=== PATIENT | female | born 1985 | race Caucasian/White ===

== ENCOUNTER 2020-10-26 16:40 | Emergency (ER) | payer SELFPAY ==
[2020-10-26 16:53] VITALS: BP 165/120; PULSE 88; RESP 16; TEMP 36.6; O2SAT 98; BMI 23.5
--- NOTE | 2020-10-26 17:04 | XRR_ITS ---
PROCEDURE INFORMATION: Exam: XR Chest Exam date and time: 10/26/2020 5:06 PM Age: 34 years old Clinical indication: Patient HX: Dyspnea/cough; PT shielded TECHNIQUE: Imaging protocol: XR of the chest. Views: 1 view. COMPARISON: No relevant prior studies available. FINDINGS: Lungs: Visualized portions of the lungs are clear. Pleural spaces: Unremarkable. No pleural effusion. No pneumothorax. Heart/Mediastinum: Heart is within normal limits of size. Bones/joints: There is mild scoliosis of the thoracic spine. XR/XR chest 1V portable 00110 IMPRESSION: No acute infiltrate.
--- NOTE | 2020-10-26 17:04 | ECG_ITS ---
[facility] Test Date: 2020-10-26 Pat Name: Funmilayo Jung Department: Room: Gender: Female [employer]: : 1985 Requested By: Nicholas Hidalgo Order Number: [id number] Sruthi MD: Yadiel Antoine M.D. Measurements Intervals [place] Rate: 67 P: 71 WV: 138 QRS: 61 QRSD: 85 T: 46 QT: 404 QTc: 429 Interpretive Statements SINUS RHYTHM No previous ECG available for comparison Electronically Signed On 10-26-2020 19:48:14 CDT by Yadiel Antoine M.D. [id number]
--- NOTE | 2020-10-26 17:40 | W.ED.DIZZY ---
Documented by User: Nicholas Parker DO 10/27/20 07:22 HPI - Dizziness General: Chief Complaint: Dizziness Stated Complaint: dizziness x 4days Time Seen by Provider: 10/26/20 17:03 History of Present Illness: HPI Narrative: 34-year-old female comes in complaining lightheadedness dizziness. She seen by her PCP via televisit today blood pressure elevated she is advised to come the emergency room. She is currently on antihypertensives no recent dose changes she has not missed any medication she does smoke. MD elicited complaint: dizziness and lightheadedness Onset (ago): day(s) Timing: gradual onset Severity: mild Description: lightheadedness and off-balance History of similar symptoms: Yes Exacerbating factors: movement/ambulation and change in body position Relieving factors: remaining still Associated symptoms: Denies change in hearing, chest pain, chills, cough, diaphoresis, ear discharge, ear pressure, fevers/chills, headache(s), malaise, nausea, nasal congestion, palpitations, rash, short of breath, syncope, tinnitus, vomiting or weakness Associated neuro symptoms: Deny confusion, difficulty speaking, dysphagia, diplopia, extremity weakness, facial numbness, facial weakness, gait changes, numbness in extremities or visual changes Review of Systems Const: Denies: chills, malaise or diaphoresis ENMT: Denies: ear discharge, change in hearing, tinnitus or nasal congestion Card: Denies: chest pain, palpitations or syncope Resp: Denies: dyspnea, productive cough or non-productive cough GI: Denies: nausea, vomiting or dysphagia : Denies: flank pain, difficulty voiding, dysuria, urinary frequency or urinary urgency Skin/Breast: Denies: rash or pruritus Neuro: Denies: headache(s), numbness in extremities or confusion [facility] Female Reproductive History: Date of last menstrual period: 10/05/20 Physical Exam Const: COMMON NORMALS: no acute distress GENERAL APPEARANCE: cooperative and comfortable ORIENTATION/CONSCIOUSNESS: Yes awake, Yes oriented to person, Yes oriented to place and Yes oriented to time HENMT: COMMON NORMALS: normocephalic, atraumatic, hearing grossly normal bilaterally, external ears normal, EAC's normal, TM's normal bilaterally, Normal nasal mucous membranes and turbinates present, moist oral mucous membranes and oropharynx normal HEAD & SCALP: normocephalic and atraumatic NOSE: Normal nasal mucous membranes and turbinates present EXTERNAL EAR: Yes external ears normal EXTERNAL AUDITORY CANAL: EAC's normal TYMPANIC MEMBRANE: TM's normal bilaterally Eye: COMMON NORMALS: Equal, round and reactive pupils present, EOMs intact bilaterally, conjunctivae normal and no scleral icterus CONJUNCTIVA: Yes conjunctivae normal PUPIL: Yes Equal, round and reactive pupils present Neck/C-Spine: COMMON NORMALS: full ROM, no lymphadenopathy, supple and no JVD Lymph: LYMPHATIC: no lymphadenopathy noted and no lymphedema noted Resp: COMMON NORMALS: normal respiratory effort, No retractions, No use of accessory muscles and clear to auscultation bilaterally AUSCULTATION: clear to auscultation bilaterally Cardio: COMMON NORMALS: no JVD, regular rate, regular rhythm and No murmurs present (Cardio) RATE: regular rate RHYTHM: regular rhythm GI: COMMON NORMALS: Soft to palpation and No hepatosplenomegaly present AUSCULTATION: Yes normoactive bowel sounds PALPATION: Yes Soft to palpation, No Tenderness to palpation present (GI), No Guarding due to palpation present (GI) and Yes No hepatosplenomegaly present Extremity: COMMON NORMALS: normal to inspection, capillary refill normal, no clubbing, cyanosis or edema, no calf tenderness and no pedal edema Neuro: SENSORIUM/ORIENTATION: Yes oriented to person, Yes oriented to place and Yes oriented to time Skin: COMMON NORMALS: no rashes or lesions noted GENERAL SKIN EXAM: no rashes or lesions noted Course Vital Signs: Vital signs: Vital Signs Temperature 97.6 F 10/26/20 19:30 Pulse Rate 56 L 10/26/20 19:30 Respiratory Rate 22 H 10/26/20 19:30 Blood Pressure 139/100 10/26/20 19:30 Pulse Oximetry 100 10/26/20 19:30 MDM - Dizziness MDM Narrative: Medical decision making narrative: Turned over to Dr. Valdez at change of shift see his notes for final diagnosis and disposition. Lab Data: Labs: Lab Results 10/26/20 10/26/20 10/26/20 Range/Units 17:53 18:20 18:20 WBC 15.5 H (4.0-10.0) 10^3/ uL RBC 4.43 (4.1-5.3) 10^6/u L Hgb 15.6 H (11.5-15.3) g/dL Hct 42.8 (37.0-47.0) % MCV 96.6 (81-99) fL MCH 35.2 H (28.0-34.0) pg MCHC 36.4 H (30.0-36.0) g/dL RDW 11.8 L (12.1-15.1) % Plt Count 303 (130-400) 10^3/c mm MPV 9.7 (7.4-10.4) fL Neut % (Auto) 76.0 % Lymph % (Auto) 16.9 % Merrick % (Auto) 5.7 % Eos % (Auto) 0.5 % Baso % (Auto) 0.5 % Neut # (Auto) 11.77 H (1.8-7.7) 10^3/u L Lymph # (Auto) 2.6 (0.8-4.8) 10^3/u L Merrick # (Auto) 0.9 (0.2-0.9) 10^3/u L Eos # (Auto) 0.1 (0.0-0.8) 10^3/u L Baso # (Auto) 0.1 (0.0-0.1) 10^3/u L Nucleated RBC % (a uto) 0 % Nucleated RBCs # 0.0 /100WBC Sodium 137 (136-145) mmol/L Potassium 3.9 (3.5-5.1) mmol/L Chloride 100 (98-107) mmol/L Carbon Dioxide 25 (22-29) mmol/L Anion Gap 15.9 (5-19) BUN 10 (6-20) mg/dL Creatinine 0.5 (0.5-0.9) mg/dL GFR Calculation TNP Glucose 95 (65-115) mg/dL Calculated Osmolal ity TNP Calcium 8.8 (8.5-10.5) mg/dL Total Bilirubin 0.6 (0.15-1.2) mg/dL AST 24 (0-32) U/L ALT 17 (0-33) U/L Alkaline Phosphata se 56 (35-105) IU/L Creatine Kinase 180 (26-192) U/L Total Protein 7.4 (6.6-8.7) g/dL Albumin 4.7 (3.5-5.2) g/dL Globulin 2.7 (1.3-4.6) g/dL Urine Color Straw (Yellow) Urine Appearance Clear (CLEAR) Urine pH 7 (5-7) Ur Specific Gravit y 1.005 (1.005-1.030) Urine Protein Neg (Negative) Urine Glucose (UA) Norm (Normal) Urine Ketones Negative (Negative) Urine Blood Neg (Negative) Urine Nitrate Negative (Negative) Urine Bilirubin Neg (Negative) Urine Urobilinogen Norm (Negative) mg/dL Ur Leukocyte Yamile ase Negative (Negative) Discharge Plan Discharge Patient Disposition: Home Clinical Impression: Hypertension, Vertigo Condition: Stable Prescriptions: New meclizine 25 mg tablet 25 mg PO TID PRN (Reason: dizziness) Qty: 20 RF: 0 Changed metoprolol succinate 25 mg tablet extended release 24 hr 50 mg PO DAILY Qty: 30 RF: 0 No Action lisinopril 20 mg tablet 20 mg PO DAILY RF: 0 cyanocobalamin (vitamin B-12) 5,000 mcg tablet, sublingual 5,000 mcg PO DAILY RF: 0 calcium 1 tab PO DAILY RF: 0 magnesium 1 tab PO DAILY RF: 0 zinc 1 tab PO DAILY RF: 0 Discharge Orders: Discharge ED (Routine); Ordered 10/26/20 Ordered By: Val Valdez Discharge Diet: Advance as tolerated Discharge Activity: Resume usual activity Patient Instructions: Vertigo (ED), Hypertension (ED) Coding Level of Care Code ED [employer] for Chg Fwd Exam Comprehensive Documented by User: Val Valdez MD 10/26/20 19:37 HPI - Dizziness General: Chief Complaint: Dizziness Stated Complaint: dizziness x 4days Time Seen by Provider: 10/26/20 17:03 Course Vital Signs: Vital signs: Vital Signs Temperature 97.6 F 10/26/20 19:30 Pulse Rate 56 L 10/26/20 19:30 Respiratory Rate 22 H 10/26/20 19:30 Blood Pressure 139/100 10/26/20 19:30 Pulse Oximetry 100 10/26/20 19:30 MDM - Dizziness MDM Narrative: Medical decision making narrative: Patient presents here with vertigo along with hypertension. Vertigo appears to be peripheral and has no signs of a stroke. She feels much improved here after blood pressure is improved and her meclizine was given. Will prescribe Reglan for home and increase her metoprolol from 25-50. She is to follow-up with PCP and return if worsening. She understands agrees to plan. Lab Data: Labs: Lab Results 10/26/20 10/26/20 10/26/20 Range/Units 17:53 18:20 18:20 WBC 15.5 H (4.0-10.0) 10^3/ uL RBC 4.43 (4.1-5.3) 10^6/u L Hgb 15.6 H (11.5-15.3) g/dL Hct 42.8 (37.0-47.0) % MCV 96.6 (81-99) fL MCH 35.2 H (28.0-34.0) pg MCHC 36.4 H (30.0-36.0) g/dL RDW 11.8 L (12.1-15.1) % Plt Count 303 (130-400) 10^3/c mm MPV 9.7 (7.4-10.4) fL Neut % (Auto) 76.0 % Lymph % (Auto) 16.9 % [place] % (Auto) 5.7 % Eos % (Auto) 0.5 % Baso % (Auto) 0.5 % Neut # (Auto) 11.77 H (1.8-7.7) 10^3/u L Lymph # (Auto) 2.6 (0.8-4.8) 10^3/u L Mer[place] # (Auto) 0.9 (0.2-0.9) 10^3/u L Eos # (Auto) 0.1 (0.0-0.8) 10^3/u L Baso # (Auto) 0.1 (0.0-0.1) 10^3/u L Nucleated RBC % (a uto) 0 % Nucleated RBCs # 0.0 /100WBC Sodium 137 (136-145) mmol/L Potassium 3.9 (3.5-5.1) mmol/L Chloride 100 (98-107) mmol/L Carbon Dioxide 25 (22-29) mmol/L Anion Gap 15.9 (5-19) BUN 10 (6-20) mg/dL Creatinine 0.5 (0.5-0.9) mg/dL GFR Calculation TNP Glucose 95 (65-115) mg/dL Calculated Osmolal ity TNP Calcium 8.8 (8.5-10.5) mg/dL Total Bilirubin 0.6 (0.15-1.2) mg/dL AST 24 (0-32) U/L ALT 17 (0-33) U/L Alkaline Phosphata se 56 (35-105) IU/L Creatine Kinase 180 (26-192) U/L Total Protein 7.4 (6.6-8.7) g/dL Albumin 4.7 (3.5-5.2) g/dL Globulin 2.7 (1.3-4.6) g/dL Urine Color Straw (Yellow) Urine Appearance Clear (CLEAR) Urine pH 7 (5-7) Ur Specific Gravit y 1.005 (1.005-1.030) Urine Protein Neg (Negative) Urine Glucose (UA) Norm (Normal) Urine Ketones Negative (Negative) Urine Blood Neg (Negative) Urine Nitrate Negative (Negative) Urine Bilirubin Neg (Negative) Urine Urobilinogen Norm (Negative) mg/dL Ur Leukocyte Yamile ase Negative (Negative) Discharge Plan Discharge Patient Disposition: Home Clinical Impression: Hypertension, Vertigo Condition: Stable Prescriptions: New meclizine 25 mg tablet 25 mg PO TID PRN (Reason: dizziness) Qty: 20 RF: 0 Changed metoprolol succinate 25 mg tablet extended release 24 hr 50 mg PO DAILY Qty: 30 RF: 0 No Action lisinopril 20 mg tablet 20 mg PO DAILY RF: 0 cyanocobalamin (vitamin B-12) 5,000 mcg tablet, sublingual 5,000 mcg PO DAILY RF: 0 calcium 1 tab PO DAILY RF: 0 magnesium 1 tab PO DAILY RF: 0 zinc 1 tab PO DAILY RF: 0 Discharge Orders: Discharge ED (Routine); Ordered 10/26/20 Ordered By: Val Valdez Discharge Diet: Advance as tolerated Discharge Activity: Resume usual activity Patient Instructions: Vertigo (ED), Hypertension (ED) Coding Level of Care Code ED [employer] for Chg Fwd Exam Comprehensive
[2020-10-26 17:58] LABS: Add Urine Microscopic? NO; Charge for UA Resulting for Rev
[2020-10-26 18:09] LABS: Bilirubin Urine Neg (Negative); Blood Urine Neg (Negative); Glucose Urine UA Norm (Normal); Ketones Urine Negative (Negative); Leukocyte Esterase Urine Negative (Negative); Nitrate Urine Negative (Negative); Protein Urine Neg (Negative); Specific Gravity, Urine 1.005 (1.005-1.030); Urine Appearance Clear (CLEAR); Urine Color Straw (Yellow); Urobilinogen Urine Norm (Negative); pH Urine 7 (5-7)
[2020-10-26] MEDS: metoprolol tartrate 1 mg/1 mL SDV 5 mL 5 MG IV (18:23)
[2020-10-26] MEDS: metoprolol tartrate 25 mg Tablet PO (18:23)
[2020-10-26] MEDS: amlodipine 5 mg Tablet PO (18:23)
[2020-10-26 18:30] VITALS: BP 149/107; PULSE 54; RESP 22; O2SAT 98
[2020-10-26 18:30] LABS: Basophils # 0.1 10^3/uL (0.0-0.1); Basophils % 0.5 %; Eosinophils # 0.1 10^3/uL (0.0-0.8); Eosinophils % 0.5 %; Hematocrit 42.8 % (37.0-47.0); Hemoglobin 15.6 g/dL (11.5-15.3); Lymphocytes # 2.6 10^3/uL (0.8-4.8); Lymphocytes % 16.9 %; Mean Corpuscular HGB Conc 36.4 g/dL (30.0-36.0); Mean Corpuscular Hemoglobin 35.2 pg (28.0-34.0); Mean Corpuscular Volume 96.6 fL (81-99); Mean Platelet Volume 9.7 fL (7.4-10.4); Monocytes # 0.9 10^3/uL (0.2-0.9); Monocytes % 5.7 %; Neutrophils # 11.77 10^3/uL (1.8-7.7); Nucleated Red Blood Cells % 0 %; Platelet Count 303 10^3/cmm (130-400); Red Blood Count 4.43 10^6/uL (4.1-5.3); Red Cell Distribution Width 11.8 % (12.1-15.1); White Blood Count 15.5 10^3/uL (4.0-10.0)
[2020-10-26 18:58] LABS: Albumin Level 4.7 g/dL (3.5-5.2); Alkaline Phosphatase 56 IU/L (35-105); Blood Urea Nitrogen 10 mg/dL (6-20); Calcium 8.8 mg/dL (8.5-10.5); Carbon Dioxide 25 mmol/L (22-29); Chloride 100 mmol/L (98-107); Globulin 2.7 g/dL (1.3-4.6); Glucose 95 mg/dL (65-115); Sodium 137 mmol/L (136-145); Total Bilirubin 0.6 mg/dL (0.15-1.2); Total Protein 7.4 g/dL (6.6-8.7)
[2020-10-26] MEDS: meclizine 25 mg tablet 50 MG PO (19:02)
[2020-10-26 19:03] VITALS: BP 133/103; PULSE 53; RESP 18; O2SAT 100
[2020-10-26 19:18] LABS: Creatine Phosphokinase 180 U/L (26-192)
[2020-10-26 19:24] LABS: Alanine Aminotransferase 17 U/L (0-33); Anion Gap 15.9 (5-19); Aspartate Amino Transferase 24 U/L (0-32); Potassium 3.9 mmol/L (3.5-5.1)
[2020-10-26 19:30] VITALS: BP 139/100; PULSE 56; RESP 22; TEMP 36.4; O2SAT 100
== END 2020-10-26 19:38 | disposition home or self-care (01) ==
PROVIDERS: Family Medicine; Emergency Provider Emergency Medicine
DX: R42 Dizziness and giddiness (principal); I10 Essential (primary) hypertension
CPT/HCPCS: 71045; 80053; 81003; 82550; 85025; 93005; 96374; 99284; J3490; J8597